=== PATIENT | male | born 1955 | race Caucasian/White ===

== ENCOUNTER 2016-09-10 09:31 | Inpatient (IN) | payer OTHER ==
[~2016-09-10] VITALS: Ht 177.8 cm; Wt 101.3 kg
--- NOTE | ~2016-09-10 | ECH ---
Transthoracic Echocardiography Report (TTE) Demographics Patient Name MICHAEL SANDOVAL Date of Study 09/12/2016 Patient Number [id number] Visit Number [id number] Date of 1955 Room Number 315 Accession Number [id number] Gender Male Age 61 year(s) Referring Carloz Dubois Mortuary Operations Manager Veronika Artis [facility] Physician MD Vamshi Lo MD Physician Interpreting hannah Dubois Feeder Catcher Physician MD Supervising Ordering Physician Carloz Dubois MD/LIZETTP Nurse Stress Information Systems Project Manager Conclusions Summary Technically difficult exam. The estimated left ventricular ejection fraction is 60-65%. Mild concentric left ventricular hypertrophy. The left atrium is mildly dilated by LA volume index measurement. There is no evidence of patent foramen ovale or atrial septal defect by color Doppler. Procedure Type of Study TTE procedure:Echo Complete SF. Procedure Date Date: 09/12/2016 Start: 08:23 AM Technical Quality: Fair due to body habitus. Indications:Hypertension. Additional Indications:subarachnoid hemorrhage, LOC changes Appropriate Use Criteria: 9 Height: 70 inches Weight: 233 pounds BSA: 2.23 m Rhythm: Within normal limits HR: 81 bpm BP: 136/48 mmHg M-Mode/2D Measurements LV Diastolic Dimension: 4.98 cm LV Systolic Dimension: 3.9 cm LV Septum Diastolic: 1.38 cm LV PW Diastolic: 1.25 cm AO Root Dimension: 2.63 cm Cardiac Output: 4.78 l/min LA Dimension: 3.7 cm Cardiac Index: 2.14 l/min*m LA volume index: 37 ml/m LVOT: 2.14 cm RV Base: 3.16 cm LVOT VTI: 16.42 cm RV Mid: 2.65 cm LV Stroke volume: 59.03 ml RV Length: 7.04 cm LV Stroke volume index: 26.47 ml/m TAPSE: 3.1 cm TDI-S': 11 cm/s Doppler Measurements AV Peak Velocity: 1 m/s MV Peak E-Wave: 0.79 m/s AV Peak Gradient: 4 mmHg MV Peak A-Wave: 0.48 m/s AV Mean Gradient: 2.76 mmHg MV E/A Ratio: 1.65 LVOT Peak Velocity: 0.88 m/s MV P1/2t: 47.7 msec AV Area (Continuity):3.02 cm MV Deceleration Time: 169.9 msec MV Area (PHT): 4.62 cm PV Peak Velocity: 0.96 m/s E' Septal Velocity: 0.14 m/s PV Peak Gradient: 3.66 mmHg A' Septal Velocity: 0.1 m/s RA Area: 13.28 cm Findings Left Ventricle The left ventricle is normal in size . Mild concentric left ventricular hypertrophy. Diastolic assessment reveals normal relaxation. Right Ventricle Normal right ventricle structure and function. Left Atrium The left atrium is mildly dilated by LA volume index measurement. There is no evidence of patent foramen ovale or atrial septal defect by color Doppler. Right Atrium Normal right atrial size. Mitral Valve Normal mitral valve structure and function. Aortic Valve Normal aortic valve structure and function. Tricuspid Valve Normal tricuspid valve structure and function. Pulmonic Valve The pulmonic valve is not well visualized. Pericardial Effusion No evidence of pericardial effusion. Miscellaneous Visualized portions of the aortic root and ascending aorta appear normal in size. Pleural Effusion No evidence of pleural effusion. Contractility Score LV regional wall motion:(0-Non visualized 1-Normal 2-Hypokinesis 3-Akinesis 4-Dyskinesis 5-Aneurysm) Signature
--- NOTE | ~2016-09-10 | OR ---
ADMIT: 09/10/2016 RM/LOC: 3 [facility] MR#: [id number] [address] [address] MICHAEL SANDOVAL [address] [place], [place] [address] Operative/Delivery Room Report SEX: M AGE: 61 : 1955 SURGERY DATE: 09/11/2016 SURGEON: Yovani Carty MD PSYCHOLOGY LECTURER: None. PREOPERATIVE DIAGNOSIS: Right occipital lobe brain lesion with subarachnoid hemorrhage and mild subdural hemorrhage. POSTOPERATIVE DIAGNOSIS: Right occipital lobe brain lesion with subarachnoid hemorrhage and mild subdural hemorrhage. PROCEDURE: Lumbar puncture. INDICATION FOR THE PROCEDURE: Mr. Sandoval is a very pleasant 61-year-old gentleman admitted to the hospital after about a week of headache and 24 hours of nausea and vomiting. A CT scan and a CTA were obtained, which revealed an abnormal right occipital lobe with edema and blood products as well as subarachnoid and subdural hemorrhage. There was no sign of aneurysm. An MRI of the brain was obtained, which revealed the lesion with hemorrhage and hemorrhagic encephalitis could not be excluded, therefore a lumbar puncture was needed. FINDINGS: Opening pressure of 24 cm water. COMPLICATIONS: None. DESCRIPTION OF THE PROCEDURE: After gaining informed consent, he was positioned in the left lateral decubitus position on the bed. A time-out was utilized to assess the correct side of the procedure, and he was prepped and draped in the usual sterile fashion. The interspace between L4 and 5 at the traverse line connecting the iliac crest was palpated. Utilizing sterile ADMIT: 09/10/2016 RM/LOC: 3 [facility] MR#: [id number] [address] [address] MICHAEL SANDOVAL [address] [place] [address] Operative/Delivery Room Report SEX: M AGE: 61 : 1955 technique, the lumbar puncture kit was brought into the field. His skin was prepped with povidone-iodine, draped, and the skin and subdermal tissue were anesthetized with 5 mL of lidocaine from the lumbar puncture kit. The Tuohy needle was passed through the ligamentum flavum and into the thecal sac. The CSF did not come out under any pressure. The tap was slightly traumatic and was blood-tinged initially and then was clear in color. A manometer was utilized revealing a pressure of 24 cm of water level. At no time did this appear to be under any sort of pressure. Four tubes of slightly blood-tinged to clear CSF totaling 32 mL was obtained without any complications and sent off for laboratory analysis. The Tuohy needle was withdrawn. A Band-Aid was placed over the puncture site. The patient was lying flat with no signs of complication. Julisa Hernandez APRN / Yovani Carty MD / carolyn JOB #: [id number] CC: Yovani Carty, Attending Physician Kamar Key, Family Physician
--- NOTE | ~2016-09-10 | DS ---
ADMIT: 09/10/2016 RM/LOC: 533 [facility] MR#: [id number] [facility]#: [id number] 2620 [facility] [address] [place], [place] [address] MICHAEL SANDOVAL [address] [place] [address] General Discharge Summary SEX: M AGE: 61 : 1955 ADMISSION DATE: 09/10/2016 DISCHARGE DATE: 09/15/2016 SERVICE: Neurosurgery. REASON FOR ADMISSION: 1. Headache. 2. Nausea and vomiting. 3. Occipital intracranial hemorrhage. CONSULTS: 1. Carlos Bonds MD with [facility]. 2. Natalia Richardson MD with Infectious Disease. PROCEDURE: Lumbar puncture. HOSPITAL COURSE: Mr. Sandoval is a very pleasant gentleman, who has had a headache for about the last week. He had become nauseated for a couple of days and things were progressing, so he came to the ER for evaluation. He did have a left-sided homonymous hemianopia. A CT scan of his head was obtained, which revealed abnormal right occipital lobe with edema and blood products. He was admitted to the ICU for close monitoring and care. Dr. Bonds with [facility] was consulted for co-management of his comorbidities. Hospital day #2, he was awake and alert. He was afebrile. His vital signs were stable. He was moving all extremities x4 with 5/5 strength. He complained of headache behind his right eye. Due to the fact that this could not necessarily be ruled out as infection versus stroke, a stroke workup was obtained, which included an ultrasound of his bilateral lower extremities which was negative for DVT, carotid ultrasound was done and revealed no significant stenosis. A transthoracic echo was obtained and revealed no significant abnormalities. A lumbar puncture was performed at the bedside and the patient tolerated this quite well. Multiple labs were sent for the LP. These did all come back negative with the exception of an elevated cerebrospinal fluid, total protein, and glucose. Dr. Richardson was consulted for the abnormal CSF protein and glucose. He was started prophylactically on acyclovir till all of the testing came back. He worked with Physical Therapy, Occupational Therapy, and Speech Therapy and tolerated it well. Hospital day #3, he was awake and alert, he was afebrile. His vital signs were stable, he was moving all extremities x4 with 5/5 strength. His EOMs were intact. He complained of a headache behind his right eye. His nausea was improved with food. He was transferred out of the intensive care unit to the Med/Surg floor. Hospital day #4, he was awake and alert. He was afebrile. His vital signs were stable. He continued to complain of a headache behind his right eye. He did complain of some neck spasms and was started on some medications for this. He continued with some occasional nausea. He continued to work with the therapies and tolerating it well. Hospital day #5, he was awake and alert and ambulating in the hallways. He was afebrile, and his vital signs were stable. He was moving all extremities x4. He reported the headache post right eye was mild and improving. His EOMs were intact. He continued to work with the therapies. Hospital day #6, he was awake ADMIT: 09/10/2016 RM/LOC: 533 [facility] MR#: [id number] [address] [address] MICHAEL SANDOVAL [address] [place] [id number] General Discharge Summary SEX: M AGE: 61 : 1955 and alert. He was afebrile, and his vital signs were stable, he was moving all extremities x4. He was ambulating, defecating, and urinating per his norm and was requesting discharge home. His acyclovir was discontinued as were the labs returned as negative. DISCHARGE CONDITION: Good. MEDICATIONS: 1. Colace 100 mg p.o. b.i.d. 2. Protonix 40 mg p.o. daily. 3. Flexeril 10 mg p.o. q.8 hours p.r.n. 4. Hydrocodone 5/325 one p.o. q.4 hours p.r.n. 5. Tylenol 650 mg p.o. q.4 hours p.r.n. 6. Zofran 4 mg p.o. q.4 hours p.r.n. 7. Simvastatin 20 mg at bedtime. 8. Onglyza 5 mg daily. 9. Furosemide 20 mg daily. 10.Metformin 500 mg two tablets b.i.d. 11.Timolol maleate one drop OU b.i.d. 12.Invokana 100 mg daily. 13.Lisinopril 10 mg at bedtime. DISCHARGE INSTRUCTIONS: Per Dr. Carty. He can have a regular diet. He is a fall risk. He should not drive until he is seen in clinic. He is to have an MRI with and without paddy of his brain in 2 to 4 weeks. He should be taking it easy at home, but he should be up and walking. He will call with any questions or concerns including neurological worsening, signs or symptoms of infection, or any other issues. FOLLOWUP: He will follow up with Dr. Carty in clinic after his MRI. DISPOSITION: He was discharged to home. Total eeax-eo-samr time for the discharge planning care coordination was 30 minutes. Julisa Hernandez APRN / Yovani Carty MD / carolyn JOB #: [id number] CC: Yovani Carty MD, Attending Physician Kamar Key MD, Family Physician
--- NOTE | 2016-09-13 08:38 | HP ---
ADMIT: 09/10/2016 RM/LOC: [facility] MR#: [id number] 26[address] [facility] [address] [place], [place] [address] MICHAEL SANDOVAL [address] [place] [address] Pre-OP History and Physical SEX: M AGE: 61 : 1955 DATE OF SERVICE: REASON FOR ADMIT: Intracranial hemorrhage. HISTORY OF PRESENT ILLNESS: Mr. Sandoval is a very pleasant 61-year-old gentleman with few days worth of some nausea. He has not noticed any visual changes, but he was throwing up overnight. Things started about a week ago where he has had a headache that has been progressive. PAST MEDICAL HISTORY: Left big toe amputation, left hallux amputation, diabetes, hypertension, and hyperlipidemia. He also has glaucoma. SOCIAL HISTORY: Nonsmoker and nondrinker. Does not use drugs of abuse. MEDICATIONS: Simvastatin, furosemide, Onglyza, metformin, timolol, Invokana, and lisinopril. ALLERGIES: NONE KNOWN. FAMILY HISTORY: No history of neurosurgical disease or cancers. REVIEW OF SYSTEMS: Complete review of systems was obtained and pertinent positives in the preceding portion of this document. PHYSICAL EXAMINATION: VITAL SIGNS: Blood pressure 166/72, pulse 102, respiratory rate 16 times a minute, and 96% on room air. GENERAL: He is an otherwise healthy, age-appropriate appearing gentleman. HEENT: Atraumatic head. No scleral icterus. Clear oropharynx. RESPIRATORY: Normal respiratory excursion. ABDOMEN: Nontender abdomen. 2+ radial pulses. NEUROLOGICAL EXAMINATION: MENTAL STATUS: He is awake, alert, and oriented x4. He has no dysphonia, dysarthria, or aphasia. His affect is appropriate. His thought content is normal. Cranial nerves II through XII are individually tested. He has a left-sided homonymous hemianopia. Face is symmetric. ADMIT: 09/10/2016 RM/LOC: ER [facility] MR#: [id number] 26[address] [facility] [address] [place], [place] [address] [place] [address] Pre-OP History and Physical SEX: M AGE: 61 : 1955 Tongue is midline. Palate is equally elevating. MOTOR EXAM: 5/5 strength in bilateral upper and lower extremities with normal bulk, normal tone. Deep tendon reflexes 2/4 in the upper and lower extremities. Sensation intact in the face and upper and lower extremities to light touch. CEREBELLAR: No cerebellar signs. Gait not tested. ASSESSMENT AND PLAN: Mr. Sandoval is a pleasant gentleman with a brain lesion and some subarachnoid as well as mild subdural hemorrhage without shift in the right occipital lobe. I am going to obtain an MRI. CTA was obtained and there was no sign of aneurysm as a causative agent. I will plan to put him up in the intensive care unit. Yovani Carty MD/ carolyn JOB #: [id number] CC: Mark Miller, Attending Physician Kamar Key, Family Physician
--- NOTE | 2016-09-14 07:41 | ER ---
ADMIT: 09/10/2016 RM/LOC: ER [facility] MR#: [id number] 2620 [facility] [address] [place], [place] [address] MICHAEL SANDOVAL [address] [place] [address] Emergency Room Report SEX: M AGE: 61 : 1955 DATE: 09/10/2016 TIME: 0931 hours. Please refer to my T-sheet for complete H and P. Briefly, the patient is a 61-year-old, who comes in with vomiting and headache, 5 days of vomiting and now the headache. He normally does not get headaches. He has no travel. The headache actually started 2 days after the vomiting, rates it 8. May be a trace of diarrhea. He is diabetic. He says his sugars have been running okay. He describes it as sharp paining headache. PHYSICAL EXAMINATION: VITAL SIGNS: Blood pressure 172/75, pulse 94, respirations 18, temp 98.3, and saturating 100%. GENERAL: He is in no acute distress. Very flat affect. HEENT: Grossly normal. LUNGS: Clear. HEART: Regular. ABDOMEN: Soft. SKIN: No rash. NEUROLOGIC: Alert and oriented, nonfocal. EMERGENCY DEPARTMENT COURSE: CBC was normal except white count 11.8. Chemistries normal except CO2 of 21, BUN 29, glucose 239, and creatinine 1.7. CT scan of his brain revealed an occipital intracranial hemorrhage, subarachnoid blood, and possibly some small subdural. We did a CT angio which revealed no vascular abnormality at least noted on this exam. I talked to Dr. Yovani Carty, he will admit this patient to the hospital and Dr. Bonds is involved with him too. ASSESSMENT: 1. Acute intracranial hemorrhage. 2. Nausea and vomiting. 3. Headache. 4. This patient is significantly ill. 5. Critical care time of 60 minutes. PLAN: Admit to the hospital. Mark Miller MD/ carolyn JOB #: [id number] CC: Mark Miller MD, Attending Physician Kamar Key MD, Family Physician
[2016-09-16] MEDS ORDERED: ZOCOR DPS20 MG PO (11:05)
[2016-09-16] MEDS ORDERED: LASIX DPS20 MG PO (11:05)
[2016-09-16] MEDS ORDERED: GLUCOPHAGE-DPS500 MG PO (11:05)
[2016-09-16] MEDS ORDERED: ONGLYZA5 MG PO (11:05)
[2016-09-16] MEDS ORDERED: TIMOPTIC5 ML OU (11:06)
[2016-09-16] MEDS ORDERED: INVOKANA100 MG PO (11:06)
[2016-09-16] MEDS ORDERED: ZESTRIL DPS10 MG PO (11:06)
[2016-09-16] MEDS ORDERED: FLEXERIL-DPS10 MG PO (11:07)
[2016-09-16] MEDS ORDERED: PROTONIX40 MG PO (11:07)
[2016-09-16] MEDS ORDERED: COLACE100 MG PO (11:07)
[2016-09-16] MEDS ORDERED: TYLENOL DPS325 MG PO (11:08)
[2016-09-16] MEDS ORDERED: HYDROCODON-ACE1 EAC4 PO (11:08)
[2016-09-16] MEDS ORDERED: ZOFRAN4 MG PO (11:09)
--- NOTE | 2016-09-19 07:55 | CO ---
ADMIT: 09/10/2016 RM/LOC: 315 [facility] MR#: [id number] 2620 [facility] [address] [place] [address] MICHAEL SANDOVAL [address] [place] [address] Consultation SEX: M AGE: 61 : 1955 DATE OF CONSULTATION: 09/10/2016 ATTENDING PHYSICIAN: Yovani Carty CONSULTING PHYSICIAN: Carlos Bonds MD REASON FOR CONSULTATION: Any further recommendations for the management of this patient's diabetes. HISTORY OF PRESENT ILLNESS: This is a 61-year-old man with history of hypertension, diabetic neuropathy, type 2 diabetes mellitus, as well as glaucoma. In addition, hypertension. He presented to the ER with the onset of headache. He did undergo a goal-directed evaluation by Mark Miller MD, with the emergency staff. Did have a head CT, which was noted to have a subarachnoid hemorrhage. They did obtain a CT of his head as well with no identified etiology of the blood loss. They received consultation with Dr. Yovani Carty, he will proceed with further management of his intracranial hemorrhage. Dr. Carty asked me to follow up secondary to his type 2 diabetes. PAST MEDICAL HISTORY: 1. Hypertension. 2. Type 2 diabetes mellitus. 3. Diabetic neuropathy. 4. Hypertension. 5. Glaucoma. MEDICATIONS: 1. Invokana. 2. Onglyza. 3. Metformin. 4. Simvastatin. 5. Lasix. 6. Atenolol. 7. Lisinopril. ALLERGIES: NO KNOWN MEDICAL ALLERGIES. FAMILY HISTORY: Hypertension, type 2 diabetes mellitus, and hyperlipidemia. SOCIAL HISTORY: He drinks some. He does not do drugs. Does not smoke tobacco. He is single. REVIEW OF SYSTEMS: Complete review of systems reviewed as per HPI. PHYSICAL EXAMINATION: VITAL SIGNS: Blood pressure is 137/67, pulse 98, respiratory rate is 16, and he is 95% on room air. GENERAL: He is alert and oriented x3. No acute distress, but still have a bit of headache, but he does have no focal neurological deficits. ADMIT: 09/10/2016 RM/LOC: 315 [facility] MR#: [id number] [address] [address] MICHAEL SANDOVAL [address] [place] [address] Consultation SEX: M AGE: 61 : 1955 HEART: Regular rhythm and rate. LUNGS: Clear to auscultation, but distant. ABDOMEN: Soft and nontender. EXTREMITIES: No clubbing, cyanosis, or edema. LABORATORY DATA: CT head, subarachnoid hemorrhage. INR is 1.03. Sodium is 138, potassium is 4.7, chloride is 102, bicarb is 21, BUN is 29, creatinine is 1.7, glucose is 239, calcium is 9.1, bilirubin is 0.6, total protein is 8.4, albumin is 3.9, alkaline phosphatase is 87, AST is 19, ALT is 28, and lipase is 126. White blood cells are 11.8, hemoglobin is 16.3, and platelets 172. ASSESSMENT AND PLAN: 1. Type 2 diabetes mellitus. 2. Elevated creatinine. Baseline is 1.4, and it is 1.7 today. 3. Subarachnoid hemorrhage. I will go ahead and proceed with the holding all his oral hypoglycemic agents, place him on some supplemental scale insulin regular at a very low dose q.6 hours with intermittent dosing. We will also place him on some gentle IV fluids at 50 mL an hour due to his elevated creatinine as well as he does appear to be dry on his laboratories. We will go ahead and hold his diuretic therapy as well. The patient expressed to be a full code. I will continue to follow this patient and make recommendations based on his clinical progress. Carlos Bonds MD/ carolyn JOB #: [id number] CC: Yovani Carty, Attending Physician Kamar Key, Family Physician
--- NOTE | 2016-09-26 10:41 | CO ---
ADMIT: 09/10/2016 RM/LOC: 315 [facility] MR#: [id number] 2620 [facility] [address] [place], [place] [address] MICHAEL SANDOVAL [address] [place] [address] Consultation SEX: M AGE: 61 : 1955 DATE OF CONSULTATION: 09/12/2016 ATTENDING PHYSICIAN: Yovani Carty CONSULTING PHYSICIAN: Natalia Richardson MD REASON FOR CONSULTATION: Abnormal CSF. Thank you, Dr. Craty, for the consult and involving me in this patient's care. HISTORY OF PRESENT ILLNESS: The patient is a 61-year-old man with history of hypertension and diabetes mellitus, who presented to the ER with acute onset of headache since last 3 days. He started feeling sick since last with nausea and vomiting and then started having headache since Monday. He describes the headache as 10/10 in severity before and it is down to 5/10 in severity. It is mainly in the frontal region and is also associated with right eye pain. He does have a history of severe glaucoma and was recently seen by Ophthalmology. He denies any fever, chills, or any other complaints at this time. He lives alone at home and does not have any pets. Denies any recent travel, tick or mosquito bites. Denies any sick contact. A CT of the head done in the ER showed abnormal right occipital lobe edema and blood products. PAST MEDICAL HISTORY: Diabetes mellitus, left big toe amputation, hypertension, hyperlipidemia, and glaucoma. SOCIAL HISTORY: Lives alone at home. Denies any smoking, alcohol, or recreational drug use. ALLERGIES: NO KNOWN DRUG ALLERGIES. CURRENT MEDICATIONS: Include: 1. Colace. 2. Lasix. 3. Milk of magnesia. 4. Zestril. 5. Senokot. 6. Zocor. 7. Omeprazole. 8. Timoptic eyedrops. 9. Insulin sliding scale. 10.Cardene drip. FAMILY HISTORY: Significant for diabetes mellitus in his grandparents. REVIEW OF SYSTEMS: A 10-point review of systems negative except as mentioned in HPI. ADMIT: 09/10/2016 RM/LOC: 315 [facility] MR#: [id number] [address] [address] MICHAEL SANDOVAL [address] [place] [address] Consultation SEX: M AGE: 61 : 1955 PHYSICAL EXAMINATION: VITAL SIGNS: Current temperature 97.1, heart rate 74, respiration 18, blood pressure 124/44 and 97% on 2 L. GENERAL: In no acute distress. HEENT. Head, normocephalic and atraumatic. Extraocular movements intact. Oral mucosa moist. LYMPH: No palpable anterior/posterior cervical or supraclavicular lymphadenopathy. CHEST: Decreased breath sounds bilaterally. Few crackles at bases. CARDIOVASCULAR: S1 and S2 heard. Regular rate and rhythm. ABDOMEN: Soft, obese, and nontender. Active bowel sounds. EXTREMITIES: No peripheral edema. SKIN: No rash noted on exposed skin. PSYCH: Normal affect. Memory intact. NEUROLOGIC: Awake, alert, and oriented x3. No nuchal rigidity. DATA REVIEW: Brain MRI showed right occipital lobe edema and blood products. CBC shows white count of 14.1, hemoglobin 14.6, and platelets of 181. CSF cell count is 61 with 84% polymorphonuclear cells and 9000 rbc's. CSF protein is 195, glucose is 137. Cultures are pending at this time. ASSESSMENT AND PLAN: 1. Questionable viral meningitis. Given the hemorrhage, herpes simplex virus is a possibility. I will start him on acyclovir 10 mg/kg every 8 hours until the HSV PCR is back. Other differential diagnosis includes hemorrhagic cerebrovascular accident versus malignancy. I will also add on CSF cytology if any available. We will also check his serum West Nile IgM and IgG. If his right eye pain worsens, I will consider Ophthalmology evaluation. 2. Diabetes mellitus. 3. Glaucoma. Thank you for the consult and I will continue to follow the patient. Natalia Richardson MD/ carolyn JOB #: [id number] CC: Yovani Carty, Attending Physician Kamar Kye, Family Physician
== END 2016-09-15 13:30 | disposition home or self-care (01) | DRG 64 ==
LOC: ER 09:31 → 5MS 11:50 → 3ICU 11:50 → 5MS 09-12 17:44
PROVIDERS: ADMIT Neurological Surgery
PROC: 009U3ZX Drainage of Spinal Canal, Percutaneous Approach, Diagnostic (ICD-10-PCS; principal; 2016-09-12)
DX: I60.9 Nontraumatic subarachnoid hemorrhage, unspecified (principal); G93.6 Cerebral edema; E11.40 Type 2 diabetes mellitus with diabetic neuropathy, unspecified; I62.00 Nontraumatic subdural hemorrhage, unspecified; I10 Essential (primary) hypertension; E78.5 Hyperlipidemia, unspecified; H40.9 Unspecified glaucoma; Z79.84 Long term (current) use of oral hypoglycemic drugs; Z89.412 Acquired absence of left great toe

== ENCOUNTER → 2016-09-28 | Outpatient (CLI) | payer OTHER ==
[~2016-09-28] MED LIST: COLACE100 MG PO; FLEXERIL-DPS10 MG PO; GLUCOPHAGE-DPS500 MG PO; HYDROCODON-ACE1 EAC4 PO; INVOKANA100 MG PO; LASIX DPS20 MG PO; ONGLYZA5 MG PO; PROTONIX40 MG PO; TIMOPTIC5 ML OU; TYLENOL DPS325 MG PO; ZESTRIL DPS10 MG PO; ZOCOR DPS20 MG PO; ZOFRAN4 MG PO
== END | disposition home or self-care (01) ==
LOC: RAD.S 07:08
DX: R51 Headache (principal); I63.9 Cerebral infarction, unspecified; R93.0 Abnormal findings on diagnostic imaging of skull and head, not elsewhere classified